=== PATIENT | male | born 1985 | race African-American/Black ===

== ENCOUNTER 2020-11-27 13:52 | Emergency (ER) | payer OTHER, SELFPAY ==
[2020-11-27 14:00] VITALS: BP 151/102; PULSE 49; RESP 17; TEMP 36.3; O2SAT 100
[2020-11-27 14:04] VITALS: BP 86/52; PULSE 54; O2SAT 97; BMI 29.8
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
[2020-11-27 15:35] LABS: COVID-19 Test Negative (Negative); IDNOW Serial# 9DD0AD1C
[2020-11-27] MEDS: 0.9 % Sodium Chloride 500 ML IV (15:37)
[2020-11-27 15:51] LABS: Lactic Acid 1.3 mmol/L (0.5-2.0)
[2020-11-27 15:51] LABS: MANUAL DIFF FLAG NO
[2020-11-27 15:52] LABS: Basophils Percent Auto 0.7 % (0-2); Eosinophils Absolute Auto 0.2 X10*3/uL (0.0-0.4); Eosinophils Percent Auto 4.4 % (0-4); Hematocrit 38.7 % (42-52); Hemoglobin 12.6 g/dl (14.0-18.0); Imm Gran Abs Auto 0.02 X10*3/uL (0.00-0.03); Imm Gran Pct Auto 0.4 % (0.0-0.4); Lymphocytes Absolute Auto 1.3 X10*3/uL (1.2-4.9); Lymphocytes Percent Auto 28.8 % (20-40); Mean Corpuscular HGB Conc 32.6 g/dl (31.0-36.0); Mean Corpuscular Hemoglobin 26.9 pg (27.0-33.0); Mean Corpuscular Volume 82.5 fL (80-98); Mean Platelet Volume 10.3 fL (9.4-12.4); Monocytes Absolute Auto 0.3 X10*3/uL (0.1-1.2); Monocytes Percent Auto 6.7 % (2-11); Neutrophils Absolute Auto 2.7 X10*3/uL (2.0-8.3); Platelet Count 259 X10*3/uL (160-400); Red Blood Count 4.69 X10*6/uL (4.60-5.80); Red Cell Distribution Width 14.3 % (11.0-16.0); White Blood Count 4.5 X10*3/uL (4.8-10.8)
[2020-11-27 16:14] LABS: Alanine Aminotransferase 30 U/L (0-40); Alkaline Phosphatase 96 U/L (39-117); Anion Gap 13 (12-20); Aspartate Amino Transferase 26 U/L (5-37); Bilirubin Direct 0.2 mg/dL (0.0-0.5); Bilirubin Total 0.4 mg/dL (0.0-1.0); Blood Urea Nitrogen 11 mg/dL (9-16); Calcium 9.5 mg/dL (8.4-10.2); Carbon Dioxide 27 mmol/L (22-29); Chloride 99 mmol/L (96-108); Creatinine Clr Calc Pharmacy 171.8; Estimated Glomerular Filt Rate > 60; Glucose Random 93 mg/dL (60-115); Lipase 11 U/L (8-78); Magnesium 1.5 mg/dL (1.6-2.6); Sodium 134 mmol/L (135-145); Total Protein 7.4 g/dL (6.5-8.0)
[2020-11-27 16:28] LABS: Appearance Urine CLEAR; Color Urine STRAW; Glucose Urine UA NEG (NEG); Leukocyte Esterase Urine 2+ (NEG); Nitrite Urine NEG (NEG); PH 6.5 (5.0-8.0); Specific Gravity - Urine <= 1.005 (1.005-1.025); UACC Culture Trigger YES; Urine Blood 3+ (NEG); Urine Ketones NEG (NEG); Urine Protein NEG (NEG-TRACE)
[2020-11-27] MEDS: Magnesium Sulfate/H2O 2 GM/50 ML PIGGYBACK IV (16:39)
[2020-11-27] MEDS: HYDROmorphone HCl 1 MG/ML SYRINGE IVPUSH (16:39)
[2020-11-27 16:40] LABS: Bacteria Urine TRACE /LPF; Squamous Epithelial Cell Urine TRACE /LPF
[2020-11-27] MEDS: LORazepam 2 MG/ML VIAL 1 MG IVPUSH (17:51)
[2020-11-27 20:00] VITALS: RESP 18
[2020-11-27] MEDS: HYDROmorphone HCl 0.5 MG/0.5 ML SYRINGE IVPUSH (20:00)
[2020-11-27 20:28] VITALS: BP 125/87; PULSE 62; RESP 18; TEMP 36.6; O2SAT 97
== END 2020-11-27 21:25 | disposition home or self-care (01) ==
PROVIDERS: Emergency Provider Emergency Medicine; PCP Internal Medicine
DX: R10.33 Periumbilical pain (principal); G82.20 Paraplegia, unspecified; Z20.822 Contact with and (suspected) exposure to COVID-19; Z79.899 Other long term (current) drug therapy
CPT/HCPCS: 36415; 36569; 80048; 80076; 81001; 83605; 83690; 83735; 85025; 87040; 87086; 87635; 96361; 96365; 96366; 96375; 99285; J1170; J2060; J3475

== ENCOUNTER 2020-12-07 22:03 | Emergency (ER) | payer OTHER, SELFPAY ==
[2020-12-07 22:14] VITALS: BP 147/109; PULSE 121; RESP 16; O2SAT 100
[2020-12-07 22:17] VITALS: BP 110/70; BP 147/109; PULSE 58; PULSE 66; RESP 18; TEMP 36.6; O2SAT 96; O2SAT 99; BMI 28.8
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
[2020-12-07 23:52] VITALS: BP 74/28; PULSE 73; RESP 18
[2020-12-08 00:54] LABS: Appearance Urine HAZY; Color Urine RED; Glucose Urine UA NEG (NEG); Leukocyte Esterase Urine 3+ (NEG); Nitrite Urine NEG (NEG); PH 7.5 (5.0-8.0); Specific Gravity - Urine <= 1.005 (1.005-1.025); UACC Culture Trigger YES; Urine Blood 3+ (NEG); Urine Ketones NEG (NEG); Urine Protein TRACE MG/DL (NEG-TRACE)
[2020-12-08 01:10] VITALS: BP 118/87; PULSE 62; RESP 16
[2020-12-08 01:19] LABS: MANUAL DIFF FLAG NO
[2020-12-08 01:19] LABS: Bacteria Urine TRACE /LPF; Squamous Epithelial Cell Urine TRACE /LPF; WBC Clumps Urine NOTED; WBC Urine 30-49 /HPF (0-4)
[2020-12-08 01:21] LABS: Basophils Percent Auto 0.6 % (0-2); Eosinophils Absolute Auto 0.3 X10*3/uL (0.0-0.4); Eosinophils Percent Auto 4.6 % (0-4); Hematocrit 36.2 % (42-52); Hemoglobin 11.6 g/dl (14.0-18.0); Imm Gran Abs Auto 0.03 X10*3/uL (0.00-0.03); Imm Gran Pct Auto 0.4 % (0.0-0.4); Lymphocytes Absolute Auto 2.2 X10*3/uL (1.2-4.9); Lymphocytes Percent Auto 32.5 % (20-40); Mean Corpuscular Hemoglobin 26.5 pg (27.0-33.0); Mean Corpuscular Volume 82.6 fL (80-98); Monocytes Absolute Auto 0.5 X10*3/uL (0.1-1.2); Monocytes Percent Auto 8.1 % (2-11); Neutrophils Absolute Auto 3.6 X10*3/uL (2.0-8.3); Neutrophils Percent Auto 53.8 % (45-73); Platelet Count 210 X10*3/uL (160-400); Red Blood Count 4.38 X10*6/uL (4.60-5.80); Red Cell Distribution Width 14.3 % (11.0-16.0); White Blood Count 6.7 X10*3/uL (4.8-10.8)
[2020-12-08 01:37] LABS: Alanine Aminotransferase 23 U/L (0-40); Albumin Level 3.6 g/dL (3.5-5.0); Alkaline Phosphatase 85 U/L (39-117); Anion Gap 11 (12-20); Aspartate Amino Transferase 17 U/L (5-37); Bilirubin Direct 0.2 mg/dL (0.0-0.5); Bilirubin Total 0.4 mg/dL (0.0-1.0); Blood Urea Nitrogen 14 mg/dL (9-16); Calcium 9.2 mg/dL (8.4-10.2); Carbon Dioxide 27 mmol/L (22-29); Chloride 100 mmol/L (96-108); Creatinine Clr Calc Pharmacy 174.2; Estimated Glomerular Filt Rate > 60; Glucose Random 115 mg/dL (60-115); Potassium 3.9 mmol/L (3.3-5.1); Sodium 134 mmol/L (135-145); Total Protein 6.7 g/dL (6.5-8.0)
[2020-12-08] MEDS: cefTRIAXone sodium 1 GM in 0.9 % Sodium Chloride 50 ML IV (02:25)
[2020-12-08] MEDS: 0.9 % Sodium Chloride 1,000 ML 999 ML IVCONT (02:25)
== END 2020-12-08 04:10 | disposition home or self-care (01) ==
PROVIDERS: Physician Assistant; Emergency Provider Emergency Medicine Emergency Medical Services; PCP Internal Medicine
DX: N39.0 Urinary tract infection, site not specified (principal); R30.0 Dysuria; R10.32 Left lower quadrant pain; Z79.899 Other long term (current) drug therapy
CPT/HCPCS: 36415; 51702; 80048; 80076; 81001; 83605; 85025; 87040; 87086; 87088; 87147; 87186; 87205; 96361; 96374; 99283; 99284; J0696

== ENCOUNTER 2020-12-11 14:54 | Emergency (ER) | payer OTHER, SELFPAY | END 2020-12-11 18:56 | disposition left against medical advice (07) | PROVIDERS: Emergency Provider Emergency Medicine; PCP Internal Medicine | DX: R79.89 Other specified abnormal findings of blood chemistry (principal) ==

== ENCOUNTER 2020-12-12 01:00 | Emergency (ER) | payer OTHER, SELFPAY ==
[2020-12-12 01:46] VITALS: BP 100/70; PULSE 71; RESP 16; TEMP 37; O2SAT 99; BMI 28.0
--- NOTE | 2020-12-12 02:04 | ED.RECABL ---
HPI - Recheck/Abnormal Lab/Rx General Chief Complaint: Recheck/Abnormal Lab/Rx Stated Complaint: ? infection Time Seen by Provider: 12/12/20 02:04 Source: patient Mode of arrival: EMS History of Present Illness HPI narrative: Is a 35-year-old male who is brought in by EMS after he was called for blood culture growth. Patient denies any change in symptoms since he was evaluated here 12/07. He denies any fevers, chills, and is requesting for IV antibiotics as he states that the oral antibiotics do not seem to be as effective. Related Data Previous Rx's Medication Instructions Recorded cefpodoxime 200 mg tablet 200 mg PO BID 7 Days #14 tab 12/08/20 cefepime 2 gram solution for 2 g IV Q12H 5 Days #10 ea 12/12/20 injection Allergies Allergy/AdvReac Type Severity Reaction Status Date / Time iodine Allergy Difficulty Verified 11/27/20 14:26 Breathing morphine Allergy Hives Verified 11/27/20 14:25 nitrofurantoin Allergy Hives Verified 11/27/20 14:26 [From Macrobid] quetiapine [From Seroquel] Allergy Nausea and Verified 11/27/20 14:26 Vomiting Review of Systems Review of Systems: Pertinent positives and negatives as stated in HPI 10 point review of systems is otherwise negative. PMFSH Past Medical History Source: nursing notes reviewed Medical History Chronic indwelling [place] catheter Paraplegia UTI (urinary tract infection) Social History Social History Patient Tobacco Use Status: Never used Tobacco Advance Directives: No Physical Exam Vital Signs: Vital Signs: Last Vital Signs Temp 98.6 F 12/12/20 01:46 Pulse 71 12/12/20 01:46 Resp 16 12/12/20 01:46 BP 100/70 12/12/20 01:46 Pulse Ox 99 12/12/20 01:46 Body Mass Index 28.0 VITAL SIGNS: Reviewed. GENERAL: Well developed, well nourished, in no acute distress. HEAD: Normocephalic/atraumatic EYES: PERRLA, EOMI OROPHARYNX: no oral lesions noted, posterior pharynx clear LUNGS: Normal breath sounds. No adventitious sounds or accessory muscle use. SpO2<99> CARDIOVASCULAR: Regular rate and rhythm without noted murmurs ABDOMEN: Soft, non-tender, non-distended with bowel sounds. NEUROLOGIC: Alert and oriented x 4. Quadriplegia Course Course Course Narrative: 35-year-old male with history and clinical presentation after review of identified organism on urine culture and comparing to the reported blood culture growth they are inconsistent as patient has Pseudomonas in his urine and the report on blood culture is for gram positive cocci in 1 bottle. This is likely contamination and it is unclear why the sensitivities for the urine culture are not yet reported. However, patient will be sent home with IV antibiotics for for empiric treatment of Pseudomonas in the urine. All rationale and plan were discussed with patient at bedside and he was discharged home in stable condition and a prescription for the IV antibiotics was sent to his pharmacy. Discharge Plan Discharge Clinical Impression: Pseudomonas urinary tract infection Patient Disposition: Home, Self-Care Instructions: Cefepime (By injection), Urinary Tract Infection in Men (ED) Additional Instructions: 1. Resume all home medications. 2. STOP Cefpodoxime 3. Follow-up with your primary care provider on Sunday morning to review urine culture and sensitivities for antibiotic adjustment. Return to the ER for acute worsening of symptoms. Prescriptions: New cefepime 2 gram recon soln 2 g IV Q12H 5 Days Qty: 10 RF: 0 No Action cefpodoxime 200 mg tablet 200 mg PO BID 7 Days Qty: 14 RF: 0
== END 2020-12-12 03:16 | disposition home or self-care (01) ==
PROVIDERS: Emergency Provider Student in an Organized Health Care Education/Training Program
DX: N39.0 Urinary tract infection, site not specified (principal); B96.5 Pseudomonas (aeruginosa) (mallei) (pseudomallei) as the cause of diseases classified elsewhere
CPT/HCPCS: 99283